=== PATIENT | male | born 1990 ===

== ENCOUNTER 2016-05-21 13:47 | Emergency (ER) | payer OTHER ==
[2016-05-21 14:04] VITALS: TEMP 37.1; Ht 167.6 cm
[2016-05-21] MEDS ORDERED: NAPR-1169 PO (14:12)
[2016-05-21] MEDS ORDERED: CYCLOBENZAPRINE HCL 10 MG TAB PO STA (14:36)
[2016-05-21] MEDS ORDERED: OXYCODONE HCL IR 5 MG TAB (IMMEDIATE RELEASE) PO STA (14:36)
[2016-05-21] MEDS ORDERED: CYCL10TA6 PO (15:20)
[2016-05-21] MEDS ORDERED: OXYC1TAB3 PO (15:20)
--- NOTE | 2016-05-21 15:21 | EMERGENCY ROOM VISIT NOTE ---
ED Visit Note First contact with patient: 14:08 CHIEF COMPLAINT: Low back pain HISTORY OF PRESENT ILLNESS: This 26-year-old male patient presents to the emergency department ambulatory complaining of pain in the low back which is chronic in nature but worsened yesterday. The patient states that he has had low back pain for the past several months. He is currently going to physical therapy and taking Naprosyn. He reports that he occasionally does have flareups of the pain but they usually resolve on their own. The patient reports that yesterday, he tried to bend over to wash his hands and had a sudden onset of sharp pain in the low back. He states that his legs feel heavy and he does have some difficulty walking due to the pain. The patient notes the pain as sharp and a 9/10. The patient has taken Naprosyn without relief of the pain. The patient denies any loss of control of their bowel or bladder functions. There has been no leg numbness or weakness, and no change in sensation. No nausea or vomiting or abdominal pain. No chest pain or shortness of breath. No dysuria or increased urinary frequency. REVIEW OF SYSTEMS: A review of systems was performed with positives and pertinent negatives listed in the history of present illness. All other systems were reviewed and are negative. ALLERGIES: No known drug allergies MEDICATIONS: No chronic medications PMH: No significant past medical history. SOCIAL HISTORY: The patient lives locally with his girlfriend. He is a smoker and admits to occasional alcohol use. PHYSICAL EXAM: VITALS: Vitals are noted on the nurse's note and reviewed by myself. Vital signs stable. GENERAL: This is a 26-year-old male, in no acute distress, nondiaphoretic, well- developed well-nourished. SKIN: The skin was without rashes, erythema, edema, or bruising. Capillary refill less than 2 seconds. NECK: Supple without nuchal rigidity. No cervical spine tenderness. No paraspinous muscle tenderness. HEART: Regular rate and rhythm without murmurs gallops or rubs. LUNGS: Clear to auscultation bilaterally without wheezes, rales or rhonchi. ABDOMEN: Positive bowel sounds x 4. Normal tympanic percussion. Soft, nontender, without masses or organomegaly. Valente sign negative. MUSCULOSKELETAL: No muscle atrophy, erythema, or edema noted of the back. There is no tenderness over the lumbar spinous processes. There is tenderness over the lumbar paraspinous muscles bilaterally. There is no tenderness over the thoracic spine or paraspinous muscles. There are no muscle spasms present. The patient is slow to move around with maximum tenderness with flexion. Negative straight leg raise test. NEURO: Patient was alert and oriented to person place and time. Normal sensation to light and sharp touch. Deep tendon reflexes 2+ in the lower extremities. Dorsalis pedis pulse 2+ bilaterally. Strength 5/5 and equal in the bilateral lower extremities. EMERGENCY DEPARTMENT COURSE: The patient was evaluated as above. His back pain appears to be musculoskeletal. He was given 5 mg OxyIR and 10 mg Flexeril. The patient was reevaluated and had only moderate relief of his pain. I do not believe further imaging is necessary and explained to the patient and family members my reasoning for this. The patient has nothing to suggest cauda equina syndrome or cord compression. He was given home packs and prescriptions were OxyIR and Flexeril and instructed to follow-up with [facility] for further evaluation of his back pain. He will return for any worsening of his current condition or new/concerning symptoms. The patient verbalized understanding of my assessment and treatment plan and was discharged home in good condition. DIAGNOSIS: Lumbar muscle spasm Current/Historical Medications Scheduled Cyclobenzaprine Hcl (Flexeril), 10 MG PO TID Naproxen (Naprosyn), 500 MG PO BID Scheduled PRN Oxycodone Ir (Roxicodone Ir), 1-2 TAB PO Q4H PRN for Pain Allergies Coded Allergies: No Known Allergies (Unverified , 05/21/16) Vital Signs Date Time Temp Pulse Resp B/P Pulse Ox O2 Delivery O2 Flow Rate FiO2 05/21/16 15:29 79 18 114/67 97 Room Air 05/21/16 14:04 37.1 122 20 124/82 96 Room Air Medications Administered Medications (Trade) Dose Ordered Sig/Melissa Route Start Time Stop Time Status Last Admin Dose Admin Oxycodone HCl (Roxicodone Immediate Rel Tab) 5 mg NOW STAT PO 05/21/16 14:36 05/21/16 14:37 DC 05/21/16 14:43 5 MG Cyclobenzaprine HCl (Flexeril Tab) 10 mg NOW STAT PO 05/21/16 14:36 05/21/16 14:37 DC 05/21/16 14:42 10 MG Oxycodone HCl (Roxicodone Immediate Rel 5MG Home Pack) 1 homepack UD ONCE PO 05/21/16 15:30 05/21/16 15:31 DC 05/21/16 15:30 1 HOMEPACK Cyclobenzaprine HCl (FLEXERIL 10MG Home Pack) 1 homepack UD ONCE PO 05/21/16 15:30 05/21/16 15:31 DC 05/21/16 15:30 1 HOMEPACK Departure Information Impression Primary Impression: Spasm of lumbar paraspinous muscle Dispostion Home / Self-Care Condition GOOD Prescriptions Cyclobenzaprine Hcl (FLEXERIL) 10 Mg Tab 10 MG PO TID for 5 Days, #15 TAB Prov: Torie Nunn PA-C 05/21/16 Oxycodone Ir (Roxicodone Ir) 5 Mg Tab 1-2 TAB PO Q4H Y for Pain, #15 TAB For Initial Treatment Prov: Torie Nunn PA-C 05/21/16 Referrals [facility] (PCP) Forms HOME CARE DOCUMENTATION FORM, IMPORTANT VISIT INFORMATION Patient Instructions My [facility] Additional Instructions You have been treated in the Emergency Department for Back Pain. You have received pain medicine in the emergency department which impairs your ability to operate a vehicle. It is illegal for you to drive after receiving these medicines. You have been prescribed Oxy IR to be used for pain control. This is a narcotic medication. You cannot drive or consume alcohol while on this medicine. This medicine should only be used for pain that cannot be controlled with over-the- counter pain medicines. You have been prescribed Flexeril (cyclobenzaprine) 1-2 tabs orally, three times per day. Do NOT exceed 30 mg (6 tabs) per day. Take your first dose at bedtime as it can make you drowsy. Always take all medications as prescribed. For pain control, you can use the following [id number] medicines (if >12 yo): - Regular strength (325mg/tab) Tylenol (acetaminophen) 2 tabs every 4-6 hours as needed. Do not exceed 12 tablets in a 24 hour period. Avoid taking more than 4 grams (4000 mg) of Tylenol per day. This includes any other sources of acetaminophen you may take on a regular basis. - Regular strength (200 mg/tab) Advil (ibuprofen) 1-2 tabs every 4-6 hours as needed. Do not exceed a dose of 3200 mg per day. If this is an acute injury, ice can be applied to the area of pain for the first 3 days to help decrease pain and inflammation. After the first 3 days, a heating pad can be used over the area for continued soothing relief. Follow-up with [facility] within the next 2 days for further evaluation of your back pain. Return to the Emergency Department if your current symptoms worsen despite treatment course outlined above, or if you develop any of the following symptoms : intractable pain despite aforementioned treatment course, loss of control of your bowel or bladder, numbness or tingling in your groin, or development of a fever.
[2016-05-21 15:29] VITALS: BP 114/67; PULSE 79; O2SAT 97
[2016-05-21] MEDS ORDERED: OXYCODONE IR HOME PACK PO ONE (15:30)
[2016-05-21] MEDS ORDERED: FLEXERIL HOME PACK 10 MG VIAL PO ONE (15:30)
== END 2016-05-21 15:33 | disposition home or self-care (01) ==
LOC: C.EDB 13:49 → C.EDA 15:33
DX: M62.830 Muscle spasm of back (principal)